=== PATIENT | female | born 1985 | race Caucasian/White ===

== ENCOUNTER 2017-07-31 11:06 | Emergency (ER) | payer OTHER ==
[2017-07-31] MEDS ORDERED: MOTRIN 600 MG PO ONE (11:21)
[2017-07-31] MEDS ORDERED: MOTRIN 600 MG ONE (11:24)
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
[2017-07-31 12:34] VITALS: BP 130/89; PULSE 76; O2SAT 99
== END 2017-07-31 12:09 | disposition home or self-care (01) ==
LOC: ED 11:06
DX: S43.402A Unspecified sprain of left shoulder joint, initial encounter (principal); V59.49XA Driver of pick-up truck or van injured in collision with other motor vehicles in traffic accident, initial encounter
CPT/HCPCS: 71046; 73030; 99283; A9270-GY